=== PATIENT | female | born 1955 | race Caucasian/White ===

== ENCOUNTER → 2016-06-25 | Outpatient (CLI) | payer BC ==
[~2016-06-25] MED LIST: CA C1TAB26 PO; CALC-80 PO; HYDR-3583 PO; MAGN400T6 PO; METO25TA PO; ROSU5TAB PO
--- NOTE | 2016-06-25 09:13 | Diagnostic Imaging Report ---
EXAMINATION: Left breast diagnostic mammogram with a Computer Aided Detection (CAD) system. INDICATION: History of breast cancer. COMPARISON: 06/21/2015. FINDINGS: The patient has had a right mastectomy for cancer. The left breast demonstrates scattered fibroglandular densities. There is a 6 mm asymmetry seen in the central aspect on the left MLO view which does not have a definite correlate on the true lateral or CC projections. A dedicated focal compression view was performed and demonstrates resolution of the asymmetry, suggestive of summation artifact of parenchyma. IMPRESSION: Resolved subcentimeter asymmetry on the MLO view, likely related to summation artifact of parenchyma. The ultrasound evaluation is pending. ACR BI-RADS Category 0: Incomplete. (Needs additional imaging evaluation). Result letter will be mailed to the patient. Note: At least 10% of breast cancer is not imaged by mammography. Dictated by: Dictated on workstation # [id number]
--- NOTE | 2016-06-25 13:24 | Diagnostic Imaging Report ---
EXAMINATION: Left breast ultrasound. INDICATION: Asymmetry in the MLO view. FINDINGS: Unremarkable breast parenchyma is seen with no focal lesion. The retroareolar region and 4 quadrants of the left breast were scanned. IMPRESSION: Negative study. Return to annual screening mammogram. ACR BI-RADS Category 1: Negative. Dictated by: Dictated on workstation # [id number]
== END ==
LOC: RAD 07:46
PROVIDERS: ATTEND Internal Medicine Hematology & Oncology
DX: C50.411 Malignant neoplasm of upper-outer quadrant of right female breast (principal)
CPT/HCPCS: 76641

== ENCOUNTER → 2016-06-27 | Outpatient (CLI) | payer BC | LOC: ONC 15:01 | PROVIDERS: ATTEND Internal Medicine Hematology & Oncology | DX: C50.411 Malignant neoplasm of upper-outer quadrant of right female breast (principal); M85.80 Other specified disorders of bone density and structure, unspecified site; N18.3 Chronic kidney disease, stage 3 (moderate); E03.9 Hypothyroidism, unspecified; Z17.0 Estrogen receptor positive status [ER+]; Z79.811 Long term (current) use of aromatase inhibitors; Z92.3 Personal history of irradiation | CPT/HCPCS: 99213 ==

== ENCOUNTER → 2016-07-03 | Outpatient (CLI) | payer BC ==
--- NOTE | 2016-07-03 11:49 | Diagnostic Imaging Report ---
PROCEDURE: US Thyroid. TECHNIQUE: Multiple real-time grayscale images were obtained of the thyroid in various projections. INDICATION: Hyperthyroidism. FINDINGS: The right thyroid lobe is 4.7 x 1.1 x 1.1 cm. The left lobe is 4.3 x 1.9 x 1.3 cm. In the right lobe, there is an isoechoic nodule with a hypoechoic halo seen measuring 0.8 x 0.6 x 0.7 cm with no associated calcifications seen. Mild peripheral vascularity around it is noted. The rest of the thyroid gland demonstrates slight heterogeneity in the parenchyma with no discrete masses. IMPRESSION: Nonspecific 0.8 cm solid-appearing nodule in the right thyroid lobe. Dictated by: Dictated on workstation # [id number]
== END ==
LOC: RAD 07:44
PROVIDERS: ATTEND Internal Medicine
DX: E06.3 Autoimmune thyroiditis (principal); E04.1 Nontoxic single thyroid nodule; E03.9 Hypothyroidism, unspecified; E05.90 Thyrotoxicosis, unspecified without thyrotoxic crisis or storm
CPT/HCPCS: 76536

== ENCOUNTER → 2017-01-02 | Outpatient (CLI) | payer BC | LOC: ONC 14:20 | PROVIDERS: ATTEND Internal Medicine Hematology & Oncology | DX: C50.411 Malignant neoplasm of upper-outer quadrant of right female breast (principal); M85.80 Other specified disorders of bone density and structure, unspecified site; N18.3 Chronic kidney disease, stage 3 (moderate); E03.9 Hypothyroidism, unspecified; Z17.0 Estrogen receptor positive status [ER+]; Z79.811 Long term (current) use of aromatase inhibitors; Z92.3 Personal history of irradiation | CPT/HCPCS: 99213 ==

== ENCOUNTER → 2017-01-30 | Outpatient (CLI) | payer BC ==
--- NOTE | 2017-01-30 11:11 | Diagnostic Imaging Report ---
EXAMINATION: DEXA scan. INDICATION: Osteopenia. TECHNIQUE: Bone mineral density estimated based on dual energy radiography over the lumbar spine and femoral necks, was performed. FINDINGS: The lumbar spine T-score is -1. This is 2% increased density measurement compared to 12/01/2014. T score over the left femoral neck is -1.3 and on the right is -1.2. This is 0.9% decreased density measurements compared to 2014. IMPRESSION: Osteopenia. Dictated by: Dictated on workstation # [id number]
== END ==
LOC: RAD 08:11
PROVIDERS: ATTEND Internal Medicine Hematology & Oncology
DX: M85.80 Other specified disorders of bone density and structure, unspecified site (principal); R29.890 Loss of height; Z79.83 Long term (current) use of bisphosphonates
CPT/HCPCS: 77080

== ENCOUNTER → 2017-07-17 | Outpatient (CLI) | payer BC ==
--- NOTE | 2017-07-17 18:51 | Diagnostic Imaging Report ---
INDICATION: Right breast carcinoma, status post mastectomy. Correlation is made with prior left mammogram from 06/25/2016 and 06/21/2015. The current study was also evaluated with a Computer Aided Detection (CAD) system. FINDINGS: There is moderate density in the left breast. No mass or malignant appearing microcalcifications are seen. The axilla is unremarkable. IMPRESSION: No mammographic features suspicious for malignancy are identified. ACR BI-RADS Category 1: Negative. Result letter will be mailed to the patient. Note: At least 10% of breast cancer is not imaged by mammography. Dictated by: Dictated on workstation # [id number]
== END ==
LOC: RAD 07:38
PROVIDERS: ATTEND Internal Medicine Hematology & Oncology
DX: Z85.3 Personal history of malignant neoplasm of breast (principal); Z90.11 Acquired absence of right breast and nipple

== ENCOUNTER → 2018-02-03 | Outpatient (CLI) | payer OTHER | LOC: EDSTATUS 11-10 12:53 → ONC 13:28 | PROVIDERS: ATTEND Internal Medicine Hematology & Oncology | DX: C50.411 Malignant neoplasm of upper-outer quadrant of right female breast (principal); M85.80 Other specified disorders of bone density and structure, unspecified site; N18.3 Chronic kidney disease, stage 3 (moderate); E03.9 Hypothyroidism, unspecified; Z17.0 Estrogen receptor positive status [ER+]; Z79.811 Long term (current) use of aromatase inhibitors; Z92.3 Personal history of irradiation | CPT/HCPCS: 99213 ==

== ENCOUNTER → 2018-06-11 | Outpatient (CLI) | payer OTHER ==
--- NOTE | 2018-06-11 10:37 | Diagnostic Imaging Report ---
PROCEDURE: US Renal Bilateral. TECHNIQUE: Multiple real-time grayscale images were obtained over the kidneys in various projections bilaterally. INDICATION: Chronic kidney disease stage IV. The right kidney measures 9.9 x 5.0 x 5.6 cm and the left kidney measures 9.5 x 5.3 x 5.0 cm. There is a large cyst involving the upper to mid right kidney measuring 6.0 x 5.6 x 5.1 cm. No other renal masses are identified. There is some increased echogenicity to the renal cortices suggestive of medical renal disease. No calculi or hydronephrosis is identified. Urinary bladder is unremarkable and demonstrates bilateral ureteral jets. IMPRESSION: Medical renal disease and large right renal cyst. No other significant abnormalities detected. Dictated by: Dictated on workstation # [id number]
== END ==
LOC: RAD 08:36
PROVIDERS: ATTEND Internal Medicine Nephrology
DX: N18.4 Chronic kidney disease, stage 4 (severe) (principal); N28.1 Cyst of kidney, acquired
CPT/HCPCS: 76770

== ENCOUNTER → 2018-07-22 | Outpatient (CLI) | payer OTHER ==
--- NOTE | 2018-07-22 19:33 | Diagnostic Imaging Report ---
Unilateral diagnostic left mammogram. INDICATION: Right breast carcinoma. The current study was also evaluated with a Computer Aided Detection (CAD) system. This study was compared to the prior exam of 07/17/2017 and 06/25/2016. At this time, there are no current complaints. FINDINGS: The fibroglandular tissue in the left breast is heterogeneously dense. This does limit the sensitivity of this exam. When compared to the previous study, there has been no significant change. There is no primary or secondary sign of malignancy noted. IMPRESSION: There is no evidence of malignancy. ACR BI-RADS Category 1: Negative. Result letter will be mailed to the patient. Note: At least 10% of breast cancer is not imaged by mammography. Dictated on workstation # [id number]
== END ==
LOC: RAD 08:01
PROVIDERS: ATTEND Internal Medicine Hematology & Oncology
DX: C50.411 Malignant neoplasm of upper-outer quadrant of right female breast (principal); N64.59 Other signs and symptoms in breast

== ENCOUNTER → 2018-08-05 | Outpatient (CLI) | payer BC, OTHER | LOC: ONC 14:42 | PROVIDERS: ATTEND Internal Medicine Hematology & Oncology | DX: C50.411 Malignant neoplasm of upper-outer quadrant of right female breast (principal); N18.3 Chronic kidney disease, stage 3 (moderate); E03.9 Hypothyroidism, unspecified; Z17.0 Estrogen receptor positive status [ER+]; Z79.811 Long term (current) use of aromatase inhibitors; Z92.3 Personal history of irradiation | CPT/HCPCS: 99213 ==

== ENCOUNTER → 2019-02-04 | Outpatient (CLI) | payer MEDICARE, OTHER | LOC: ONC 02-03 16:49 | PROVIDERS: ATTEND Internal Medicine Hematology & Oncology | DX: C50.411 Malignant neoplasm of upper-outer quadrant of right female breast (principal); N18.3 Chronic kidney disease, stage 3 (moderate); E03.9 Hypothyroidism, unspecified; Z17.0 Estrogen receptor positive status [ER+]; Z79.811 Long term (current) use of aromatase inhibitors; Z92.3 Personal history of irradiation; N64.59 Other signs and symptoms in breast | CPT/HCPCS: 99213 ==

== ENCOUNTER → 2019-07-27 | Outpatient (CLI) | payer MEDICARE, OTHER ==
--- NOTE | 2019-07-27 13:03 | Diagnostic Imaging Report ---
INDICATION: Routine screening. Comparison is made with prior mammogram from 07/22/2018 and 07/17/2017. 2-D and 3-D unilateral left screening mammography was performed with CAD. Left breast is heterogeneously dense, limiting the sensitivity of mammography. The parenchymal pattern is stable. No mass or malignant appearing microcalcifications are seen. Left axilla is unremarkable. IMPRESSION: BI-RADS Category 1 No mammographic features suspicious for malignancy are identified. ACR BI-RADS Category 1: Negative. Result letter will be mailed to the patient. Note: At least 10% of breast cancer is not imaged by mammography. Dictated by: Dictated on workstation # [id number]
--- NOTE | 2019-07-27 14:15 | Diagnostic Imaging Report ---
INDICATION: Postmenopausal female. COMPARISON: 01/30/2017. FINDINGS: AP Spine L1-L4: [BMD (g/cm2): 1.031] [T-Score: -1.4] [Z-Score: -0.8] [BMD Previous: 1.081] [BMD % Change: -4.6] LT Hip Neck: [BMD (g/cm2): 0.736] [T-Score: -2.2] [Z-Score: -1.3] LT Hip Total: [BMD (g/cm2):0.837] [T-Score:-1.4] [Z-Score: -0.8] [BMD Previous: 0.842] [BMD % Change: -0.6] RT Hip Neck: [BMD (g/cm2):0.805] [T-Score:-1.7] [Z-Score:-0.8] RT Hip Total: [BMD (g/cm2):0.829] [T-score:-1.4] [Z-Score:-0.9] [BMD Previous:0.857] [BMD % Change:-3.3] *Indicates significant change from prior examination based on 95% confidence level. World Health Organization criteria for BMD interpretation classify patients as Normal (T-score at or above -1.0), Osteopenic (T-score between -1.0 and -2.5) or Osteoporotic (T-score at or below -2.5). LIMITATIONS AND MODIFICATION: None. FRACTURE RISK (FRAX SCORE): The ten year probability of (%): Major Osteoporotic Fracture: [10.8] Hip Fracture: [1.8] IMPRESSION: 1. Osteopenia (Low bone mass). 2. No statistically significant change in bone mineral density since prior examination. 3. See below National Osteoporosis Foundation guidelines on when to potentially initiate pharmacologic therapy. Based on the National Osteoporosis Foundation Guidelines, pharmacologic treatment should be initiated in any of the following, unless clinical conditions suggest otherwise: * Any patient with prior fragility fracture of the hip or vertebrae. A spine fracture indicates 5X risk for subsequent spine fracture and 2X risk for subsequent hip fracture. * Osteoporosis (T-score <-2.5). * Postmenopausal women and men age 50 and older with low bone mass/osteopenia (T-score between -1.0 and -2.5) by DXA and 10-year major osteoporotic fracture greater than 20% or a 10-year probability of hip fracture greater than 3%. These fracture risks are supplied above in the FRAX score, if applicable. * Clinician judgement and/or patient preferences may indicate treatment for people with 10-year fracture probabilities above or below these levels. Dictated by: Dictated on workstation # [id number]
== END ==
LOC: RAD 09:47
PROVIDERS: ATTEND Internal Medicine Hematology & Oncology
DX: Z12.31 Encounter for screening mammogram for malignant neoplasm of breast (principal); M85.80 Other specified disorders of bone density and structure, unspecified site; C50.411 Malignant neoplasm of upper-outer quadrant of right female breast; Z79.811 Long term (current) use of aromatase inhibitors
CPT/HCPCS: 77080

== ENCOUNTER → 2019-08-09 | Outpatient (CLI) | payer MEDICARE, OTHER | LOC: ONC 09:53 | PROVIDERS: ATTEND Internal Medicine Hematology & Oncology | DX: C50.411 Malignant neoplasm of upper-outer quadrant of right female breast (principal); N18.3 Chronic kidney disease, stage 3 (moderate); E03.9 Hypothyroidism, unspecified; Z17.0 Estrogen receptor positive status [ER+]; Z79.811 Long term (current) use of aromatase inhibitors; Z92.3 Personal history of irradiation | CPT/HCPCS: 99213 ==

== ENCOUNTER → 2020-02-08 | Outpatient (CLI) | payer MEDICARE, OTHER | LOC: ONC 10:30 | PROVIDERS: ATTEND Internal Medicine Hematology & Oncology | DX: M85.88 Other specified disorders of bone density and structure, other site (principal); E83.52 Hypercalcemia; I12.9 Hypertensive chronic kidney disease with stage 1 through stage 4 chronic kidney disease, or unspecified chronic kidney disease; N18.3 Chronic kidney disease, stage 3 (moderate); D72.820 Lymphocytosis (symptomatic); E21.3 Hyperparathyroidism, unspecified; Z85.3 Personal history of malignant neoplasm of breast; Z90.11 Acquired absence of right breast and nipple; Z92.3 Personal history of irradiation; Z79.811 Long term (current) use of aromatase inhibitors | CPT/HCPCS: 99213 ==

== ENCOUNTER → 2020-07-31 | Outpatient (CLI) | payer MEDICARE, OTHER ==
--- NOTE | 2020-07-31 16:05 | Diagnostic Imaging Report ---
INDICATION: Routine screening. COMPARISON: Mammograms of 07/27/2019 and 07/22/2018. TECHNIQUE: Unilateral left 2D and 3D screening mammography was performed with CAD. FINDINGS: Scattered fibroglandular densities in the left breast are noted. A benign-appearing nodule in the lateral left breast is stable. No new mass or malignant appearing microcalcifications are seen. The left axilla is unremarkable. IMPRESSION: No mammographic features suspicious for malignancy are identified. ACR BI-RADS Category 2: Benign findings. Result letter will be mailed to the patient. Note: At least 10% of breast cancer is not imaged by mammography. Dictated by: Dictated on workstation # [id number]
== END ==
LOC: RAD 09:53
PROVIDERS: ATTEND Internal Medicine Hematology & Oncology
DX: Z12.31 Encounter for screening mammogram for malignant neoplasm of breast (principal); C50.411 Malignant neoplasm of upper-outer quadrant of right female breast
CPT/HCPCS: 77063

== ENCOUNTER → 2020-08-10 | Outpatient (CLI) | payer MEDICARE, OTHER | LOC: ONC 09:53 | PROVIDERS: ATTEND Internal Medicine Hematology & Oncology | DX: C50.311 Malignant neoplasm of lower-inner quadrant of right female breast (principal); Z79.811 Long term (current) use of aromatase inhibitors; D72.820 Lymphocytosis (symptomatic); I12.9 Hypertensive chronic kidney disease with stage 1 through stage 4 chronic kidney disease, or unspecified chronic kidney disease; M85.88 Other specified disorders of bone density and structure, other site; N18.4 Chronic kidney disease, stage 4 (severe); E21.3 Hyperparathyroidism, unspecified | CPT/HCPCS: 99213 ==

== ENCOUNTER → 2021-02-14 | Outpatient (CLI) | payer MEDICARE, OTHER | LOC: LABNPT 06:23 | PROVIDERS: ATTEND Family Medicine | DX: Z53.9 Procedure and treatment not carried out, unspecified reason (principal) ==

== ENCOUNTER → 2021-08-07 | Outpatient (CLI) | payer MEDICARE, OTHER ==
--- NOTE | 2021-08-07 10:50 | Diagnostic Imaging Report ---
INDICATION: Postmenopausal state. COMPARISON: 07/27/2019. FINDINGS: AP Spine L1-L4: [BMD (g/cm2): 1.034] [T-Score: -1.4] [Z-Score: -0.8] [BMD Previous: 1.031] [BMD % Change: 0.3] LT Hip Neck: [BMD (g/cm2): 0.717] [T-Score: -2.3] [Z-Score: -1.4] LT Hip Total: [BMD (g/cm2):0.819] [T-Score:-1.5] [Z-Score: -0.9] [BMD Previous: 0.8.7] [BMD % Change: -2.2] RT Hip Neck: [BMD (g/cm2):0.783] [T-Score:-1.8] [Z-Score:-0.9] RT Hip Total: [BMD (g/cm2):0.806] [T-score:-1.6] [Z-Score:-1.0] [BMD Previous:0.829] [BMD % Change:-2.8] *Indicates significant change from prior examination based on 95% confidence level. World Health Organization criteria for BMD interpretation classify patients as Normal (T-score at or above -1.0), Osteopenic (T-score between -1.0 and -2.5) or Osteoporotic (T-score at or below -2.5). LIMITATIONS AND MODIFICATION: None. FRACTURE RISK (FRAX SCORE): The ten year probability of (%): Major Osteoporotic Fracture: [12.1] Hip Fracture: [2.4] IMPRESSION: 1. Osteopenia (Low bone mass). 2. No significant change in bone mineral density since prior examination. 3. See below National Osteoporosis Foundation guidelines on when to potentially initiate pharmacologic therapy. Based on the National Osteoporosis Foundation Guidelines, pharmacologic treatment should be initiated in any of the following, unless clinical conditions suggest otherwise: * Any patient with prior fragility fracture of the hip or vertebrae. A spine fracture indicates 5X risk for subsequent spine fracture and 2X risk for subsequent hip fracture. * Osteoporosis (T-score <-2.5). * Postmenopausal women and men age 50 and older with low bone mass/osteopenia (T-score between -1.0 and -2.5) by DXA and 10-year major osteoporotic fracture greater than 20% or a 10-year probability of hip fracture greater than 3%. These fracture risks are supplied above in the FRAX score, if applicable. * Clinician judgement and/or patient preferences may indicate treatment for people with 10-year fracture probabilities above or below these levels. Dictated by: Dictated on workstation # [id number]
== END ==
LOC: RAD 10:30
PROVIDERS: ATTEND Nurse Practitioner Family
DX: M85.88 Other specified disorders of bone density and structure, other site (principal); Z78.0 Asymptomatic menopausal state
CPT/HCPCS: 77080

== ENCOUNTER → 2021-08-07 | Outpatient (CLI) | payer MEDICARE, OTHER ==
--- NOTE | 2021-08-07 13:34 | Diagnostic Imaging Report ---
EXAMINATION: Unilateral screening left mammogram with CAD. INDICATION: Screening. COMPARISON: This study was compared to the previous exams of 07/31/2020, 07/27/2019, and 07/22/2018. PERSONAL HISTORY: At this time, there are no current complaints. The patient has had a prior mastectomy on the right for carcinoma. FINDINGS: The fibroglandular tissue in the left breast is heterogeneously dense. This does limit the sensitivity of this exam. Overall, there has been no significant change since the prior study. There is no primary or secondary sign of malignancy noted. IMPRESSION: There is no evidence of malignancy. ACR BI-RADS Category 1: Negative. Result letter will be mailed to the patient. Note: At least 10% of breast cancer is not imaged by mammography. Dictated by: Dictated on workstation # [id number]
== END ==
LOC: RAD 10:12
PROVIDERS: ATTEND Internal Medicine Hematology & Oncology
DX: Z12.31 Encounter for screening mammogram for malignant neoplasm of breast (principal)
CPT/HCPCS: 77063

== ENCOUNTER → 2022-08-08 | Outpatient (CLI) | payer MEDICARE, OTHER ==
--- NOTE | 2022-08-09 09:07 | Diagnostic Imaging Report ---
3-D unilateral screening mammogram with CAD. COMPARISON: This study was compared to the prior exams of 08/07/2021, 07/31/2020 and 07/27/2019. There are no current complaints. The patient did undergo a mastectomy for carcinoma of the right breast in 2010. The fibroglandular tissue in the left breast is heterogeneously dense. This does limit the sensitivity of this exam. When compared to the previous study there has been no significant change. There is no primary or secondary sign of malignancy noted. IMPRESSION: There is no evidence of malignancy. ACR category 1 ACR BI-RADS Category 1: Negative. Result letter will be mailed to the patient. Note: At least 10% of breast cancer is not imaged by mammography. Dictated by: Dictated on workstation # [id number]
== END ==
LOC: RAD 10:14
PROVIDERS: ATTEND Internal Medicine Hematology & Oncology
DX: Z12.31 Encounter for screening mammogram for malignant neoplasm of breast (principal)
CPT/HCPCS: 77063

== ENCOUNTER → 2022-08-08 | Outpatient (CLI) | payer MEDICARE, OTHER ==
--- NOTE | 2022-08-08 13:10 | Diagnostic Imaging Report ---
PROCEDURE: US Thyroid. TECHNIQUE: Multiple real-time grayscale images were obtained of the thyroid in various projections. INDICATION: History of multinodular goiter. COMPARISON: 07/03/2016 FINDINGS: Right lobe measures 3.8 x 0.8 x 1.1 cm and left measures 3.8 x 1.3 x 1.3 cm. Isthmus measures 5 mm in AP thickness. Single iso to slightly hyperechoic nodule is again identified on the right. It measures 7 x 5 x 7 mm. No suspicious microcalcifications are seen. Previously, this lesion measured 8 x 6 x 7 mm. No other suspicious thyroid nodule or mass is identified. Background thyroid parenchyma is otherwise homogeneous. Color flow images show normal vascularity. IMPRESSION: 1. Stable small nodule of the right thyroid lobe. 2. No new suspicious nodules or masses. Dictated by: Dictated on workstation # [id number]
== END ==
LOC: RAD 10:45
PROVIDERS: ATTEND Nurse Practitioner Family
DX: E04.2 Nontoxic multinodular goiter (principal)
CPT/HCPCS: 76536